=== PATIENT | female | born 1945 | race Caucasian/White ===

== ENCOUNTER 2019-06-15 13:53 | Inpatient (IN) | payer MEDICARE, OTHER ==
[~2019-06-15] VITALS: Ht 160 cm; Wt 83.6 kg
--- NOTE | 2019-06-15 14:26 | NUR ---
FIRST CONTACT WITH PT. PT C/O N/V FOR SIX MONTHS. PT STATES "I'M DEHYDRATED SO BAD". I HAVE DIZZINESS AND CP NOW." PT STATES LOSS OF OVER 100 LBS IN SIX MONTHS D/T NOT BEING ABLE TO EAT. SEEN AT [facility] SEVERAL TIMES, FRUSTRATED WITH LACK OF DIAGNOSIS. PT'S AOX4. RESPS EVEN AND UNLABORED. ALL MONITORS IN PLACE. CALL LIGHT WITHIN REACH.
[2019-06-15] MEDS ORDERED: ONDANSETRON 2MG/ML, 2ML ONE (14:55)
[2019-06-15] MEDS ORDERED: SODIUM CHLORIDE 0.9% 1,000ML IVBOLUS ONE ×2 (15:00→18:30)
[2019-06-15] MEDS ORDERED: ONDANSETRON 2MG/ML, 2ML IVPush ONE (15:00)
--- NOTE | 2019-06-15 15:02 | NUR ---
PT AMB TO BR WITH STEADY GAIT. PT PROVIDED URINE SAMPLE. THIS RN WALKED TO LAB AT THIS TIME.
--- NOTE | 2019-06-15 15:19 | NUR ---
PT MEDICATED PER [facility]AR. PT TOLERATED WELL. NS INFUSING AT THIS TIME.
[2019-06-15 15:30] LABS: MICROSCOPIC INDICATED
[2019-06-15 15:32] LABS: CULTURE INDICATED? YES
[2019-06-15 15:34] LABS: BASOPHILS # (AUTO) 0.01 x10^3/uL (0-0.1); BASOPHILS % (AUTO) 0 % (0-1); EOSINOPHILS % (AUTO) 0 % (1-7); LYMPHOCYTES # (AUTO) 0.78 x10^3/uL (1-3.4); LYMPHOCYTES % (AUTO) 7 % (22-44); MD NO; MEAN CORPUSCULAR HEMOGLOBIN 29.5 pg (27.0-34.8); MEAN CORPUSCULAR HGB CONC 33.2 g/dL (32.4-35.8); MEAN CORPUSCULAR VOLUME 89.1 fL (80-100); MEAN PLATELET VOLUME 7.9 fL (7.4-10.4); MONOCYTES % (AUTO) 6 % (2-9); NEUTROPHILS # (AUTO) 9.39 x10^3/uL (1.8-6.8); NEUTROPHILS % (AUTO) 87 % (42-75); PLATELET COUNT 269 x10^3/uL (130-400); RED BLOOD COUNT 4.37 x10^6/uL (3.82-5.3); RED CELL DISTRIBUTION WIDTH 14.2 % (9.6-15.2)
[2019-06-15 15:42] LABS: ALANINE AMINOTRANSFERASE 33 U/L (12-78); ALBUMIN 3.3 g/dL (3.4-5.0); ANION GAP 15 mmol/L (5-15); CALCIUM 8.6 mg/dL (8.5-10.1); CHLORIDE 99 mmol/L (98-107); CREATININE 1.07 mg/dL (0.55-1.02)
[2019-06-15 15:47] LABS: ALKALINE PHOSPHATASE 52 U/L (45-117); BILIRUBIN,TOTAL 0.7 mg/dL (0.2-1.0); TOTAL PROTEIN 6.8 g/dL (6.4-8.2); TROPONIN I < 0.015 ng/mL (0.000-0.045)
--- NOTE | 2019-06-15 15:52 | NUR ---
PT RESTING IN [facility]. PT'S AOX4. RESPS EVEN AND UNLABORED. BP/SPO2 MONITORS IN PLACE. CALL LIGHT WITHIN REACH. NS INFUSING STILL.
[2019-06-15] MEDS ORDERED: OMNIPAQUE 350 MG/ML, 100ML BOTTLE ONE (16:21)
--- NOTE | 2019-06-15 16:55 | NUR ---
MOUTH SWAB GIVEN AT THIS TIME PER PT'S REQUEST.
[2019-06-15] MEDS ORDERED: SUCR1TAB PO (17:14)
[2019-06-15] MEDS ORDERED: PANT40TA5 PO (17:15)
[2019-06-15] MEDS ORDERED: RIVA20TA PO (17:15)
[2019-06-15] MEDS ORDERED: HYDR-826 PO (17:16)
[2019-06-15] MEDS ORDERED: LISI-170 PO (17:16)
[2019-06-15] MEDS ORDERED: AMIO200T42 PO (17:16)
--- NOTE | 2019-06-15 17:34 | NUR ---
pt resting in [facility]. pt's aox4. resps even and unlabored. all monitors in place. call light within reach.
--- NOTE | 2019-06-15 18:10 | NUR ---
medication ordered from pharmacy at this time.
[2019-06-15] MEDS ORDERED: CEFTRIAXONE PMX 1GM/50ML 50 ML IV ONE (18:30)
[2019-06-15] MEDS ORDERED: METRONIDAZOLE PMX 500MG/100ML 100 ML IV ONE (18:30)
[2019-06-15] MEDS ORDERED: POTASSIUM CHLORIDE 20 MEQ in SODIUM CHLORIDE 0.9% 250 ML IV ONE ×2 (18:30→20:45)
[2019-06-15] MEDS ORDERED: CEFTRIAXONE PMX 1GM/50ML 50 ML ONE (18:30)
[2019-06-15] MEDS ORDERED: METRONIDAZOLE PMX 500MG/100ML 100 ML ONE (18:30)
--- NOTE | 2019-06-15 18:30 | NUR ---
abx and ns infusing at this time. per edmd, no blood culture needed. pt tolerated well.
--- NOTE | 2019-06-15 18:48 | NUR ---
report given to wilman peña.
--- NOTE | 2019-06-15 18:49 | NUR ---
Pt bedside report from Jacquie peña. This rn to assume care of pt.
--- NOTE | 2019-06-15 19:15 | NUR ---
Called pharmacy about flagyl and potassium y'd in together. Rx states not compatible. To hang abx prior to potassium, will tell floor nurse of situation.
--- NOTE | 2019-06-15 19:17 | NUR ---
Informed pt of potential need for 2nd iv. Pt refuses at this time. Educated and still refusing.
[2019-06-15] MEDS ORDERED: ACETAMINOPHEN 325 MG TABLET PO PRN (19:30)
[2019-06-15] MEDS ORDERED: LORazepam 2 MG/ML, 1ML IVPush PRN (19:30)
[2019-06-15] MEDS ORDERED: morphine SULFATE 10 MG/ML, 1ML IVPush PRN (19:30)
[2019-06-15] MEDS ORDERED: POTASSIUM CHLORIDE PMX 100 ML IV ONE (20:00)
[2019-06-16 03:16] VITALS: BP 147/76
[2019-06-16 05:30] LABS: ANION GAP 11 mmol/L (5-15); CALCIUM 7.4 mg/dL (8.5-10.1); CHLORIDE 108 mmol/L (98-107)
[2019-06-16 05:42] LABS: BASOPHILS # (AUTO) 0.01 x10^3/uL (0-0.1); BASOPHILS % (AUTO) 0 % (0-1); EOSINOPHILS # (AUTO) 0.02 x10^3/uL (0-0.4); EOSINOPHILS % (AUTO) 0 % (1-7); LYMPHOCYTES # (AUTO) 0.82 x10^3/uL (1-3.4); LYMPHOCYTES % (AUTO) 13 % (22-44); MD NO; MEAN CORPUSCULAR HGB CONC 33.3 g/dL (32.4-35.8); MEAN CORPUSCULAR VOLUME 90.1 fL (80-100); MEAN PLATELET VOLUME 7.6 fL (7.4-10.4); MONOCYTES # (AUTO) 0.48 x10^3/uL (0.2-0.8); MONOCYTES % (AUTO) 7 % (2-9); NEUTROPHILS # (AUTO) 5.18 x10^3/uL (1.8-6.8); NEUTROPHILS % (AUTO) 80 % (42-75); PLATELET COUNT 204 x10^3/uL (130-400); RED BLOOD COUNT 3.59 x10^6/uL (3.82-5.3); RED CELL DISTRIBUTION WIDTH 14.2 % (9.6-15.2)
[2019-06-16] MEDS ORDERED: MAGNESIUM SULFATE PMX 2GM/50ML 50 ML IV ONE (07:00)
[2019-06-16] MEDS ORDERED: POTASSIUM CHLORIDE 20 MEQ in SODIUM CHLORIDE 0.9% 250 ML IV ONE (07:00)
[2019-06-16] MEDS: SUCRALFATE 1 GM TABLET PO SCH (08:16)
[2019-06-16] MEDS: PANTOPRAZOLE 40MG TABLET PO SCH (08:17)
[2019-06-16] MEDS: AMIODARONE 200 MG TABLET PO SCH ×2 (08:17→20:23)
[2019-06-16] MEDS: LISINOPRIL 20 MG TABLET PO SCH (08:17)
[2019-06-16 11:10] VITALS: BP 151/77
[2019-06-16] MEDS ORDERED: FENTANYL PF 100 MCG/2ML ONE ×2 (12:10→13:34)
[2019-06-16] MEDS ORDERED: BUPIVACAINE/PF-EPI 0.5% 1:200K ONE (12:25)
[2019-06-16] MEDS ORDERED: ONDANSETRON 2MG/ML, 2ML ONE ×2 (12:51→13:38)
[2019-06-16] MEDS ORDERED: SUCCINYLCHOLINE 20 MG/ML, 10ML ONE (12:51)
[2019-06-16] MEDS ORDERED: ROCURONIUM 10MG/ML,5ML ONE (12:51)
[2019-06-16] MEDS ORDERED: NEOSTIGMINE 1 MG/ML, 10ML ONE (12:51)
[2019-06-16] MEDS ORDERED: GLYCOPYRROLATE 0.2MG/1ML, 5ML ONE (12:51)
[2019-06-16] MEDS ORDERED: LIDOCAINE-MPF 2% ,5ML ONE (12:51)
[2019-06-16] MEDS ORDERED: DEXAMETHASONE 4 MG/ML, 1ML ONE (12:51)
[2019-06-16] MEDS ORDERED: CEFAZOLIN 1,000 MG ONE (12:51)
[2019-06-16] MEDS ORDERED: PROPOFOL 10 MG/ML, 20ML ONE (12:51)
[2019-06-16] MEDS ORDERED: KETOROLAC 30 MG/1 ML ONE (13:05)
[2019-06-16] MEDS ORDERED: HYDROmorphone 2 MG/ML, 1ML IVPush PRN ×2 (13:30→16:30)
[2019-06-16] MEDS ORDERED: OXYcodone 5 MG/5 ML ORAL.SOL UDC PO PRN (13:30)
[2019-06-16] MEDS ORDERED: EPHEDRINE 50 MG/ML, 1ML IVPush PRN (13:30)
[2019-06-16] MEDS ORDERED: FENTANYL PF 100 MCG/2ML IV PRN (13:30)
[2019-06-16] MEDS ORDERED: PROMETHAZINE 25 MG/ML, 1ML IV PRN (13:30)
[2019-06-16] MEDS ORDERED: ONDANSETRON 2MG/ML, 2ML IV PRN (13:30)
[2019-06-16] MEDS ORDERED: MEPERIDINE/PF 25MG/ML,1ML IVPush PRN (13:30)
[2019-06-16] MEDS ORDERED: hydrALAzine 20 MG/ML, 1ML IV PRN (13:30)
[2019-06-16] MEDS ORDERED: LABETALOL 5MG/ML, 20ML IV PRN (13:30)
[2019-06-16] MEDS ORDERED: ACETAMINOPHEN 325 MG TABLET PO PRN (13:30)
[2019-06-16] MEDS ORDERED: METOPROLOL 1 MG/ML, 5ML ONE (13:36)
[2019-06-16] MEDS ORDERED: SUGAMMADEX 200 MG/2 ML IVPush ONE (13:38)
[2019-06-16] MEDS ORDERED: PROMETHAZINE 25 MG/ML, 1ML ONE (14:26)
[2019-06-16 14:52] VITALS: BP 139/68
[2019-06-16] MEDS ORDERED: HYDROcodone/APAP 5/325 TABLET PO PRN (16:30)
[2019-06-16] MEDS ORDERED: OXYcodone/APAP 5/325MG TABLET PO PRN (16:30)
[2019-06-16] MEDS ORDERED: morphine SULFATE 10 MG/ML, 1ML IV PRN (16:30)
[2019-06-16] MEDS: CEFOTETAN PMX 1GM/50ML 50 ML IVPB SCH (16:56)
[2019-06-16] MEDS: RIVAROXABAN 20 MG TABLET PO SCH (16:56)
[2019-06-16] MEDS: POTASSIUM CHLORIDE 20 MEQ in LACTATED RINGERS 1,000 ML IV SCH (17:46)
[2019-06-16 20:05] VITALS: BP 131/66
[2019-06-17 02:00] VITALS: BP 128/71
[2019-06-17] MEDS: POTASSIUM CHLORIDE 20 MEQ in LACTATED RINGERS 1,000 ML IV SCH (03:14)
[2019-06-17] MEDS: CEFOTETAN PMX 1GM/50ML 50 ML IVPB SCH (04:25)
[2019-06-17 05:30] LABS: BASOPHILS # (AUTO) 0.01 x10^3/uL (0-0.1); BASOPHILS % (AUTO) 0 % (0-1); EOSINOPHILS % (AUTO) 0 % (1-7); LYMPHOCYTES % (AUTO) 3 % (22-44); MD NO; MEAN CORPUSCULAR HEMOGLOBIN 29.8 pg (27.0-34.8); MEAN CORPUSCULAR HGB CONC 33.7 g/dL (32.4-35.8); MEAN CORPUSCULAR VOLUME 88.5 fL (80-100); MEAN PLATELET VOLUME 7.5 fL (7.4-10.4); MONOCYTES # (AUTO) 0.56 x10^3/uL (0.2-0.8); MONOCYTES % (AUTO) 6 % (2-9); NEUTROPHILS # (AUTO) 8.81 x10^3/uL (1.8-6.8); NEUTROPHILS % (AUTO) 91 % (42-75); PLATELET COUNT 198 x10^3/uL (130-400); RED BLOOD COUNT 3.32 x10^6/uL (3.82-5.3); RED CELL DISTRIBUTION WIDTH 14.5 % (9.6-15.2)
[2019-06-17 05:39] LABS: ALBUMIN 2.4 g/dL (3.4-5.0); ANION GAP 9 mmol/L (5-15); CALCIUM 7.5 mg/dL (8.5-10.1); CHLORIDE 110 mmol/L (98-107)
[2019-06-17 05:42] LABS: ALANINE AMINOTRANSFERASE 58 U/L (12-78); ALKALINE PHOSPHATASE 40 U/L (45-117); BILIRUBIN,TOTAL 0.4 mg/dL (0.2-1.0); CREATININE 1.36 mg/dL (0.55-1.02); TOTAL PROTEIN 5.1 g/dL (6.4-8.2)
[2019-06-17 07:00] VITALS: BP 148/73
[2019-06-17] MEDS: LISINOPRIL 20 MG TABLET PO SCH (08:27)
[2019-06-17] MEDS: AMIODARONE 200 MG TABLET PO SCH (08:27)
[2019-06-17] MEDS: SUCRALFATE 1 GM TABLET PO SCH (08:27)
[2019-06-17] MEDS: PANTOPRAZOLE 40MG TABLET PO SCH (08:28)
[2019-06-17 16:31] VITALS: BP 137/78
[2019-06-17] MEDS: RIVAROXABAN 20 MG TABLET PO SCH (16:37)
[2019-06-17] MEDS: POTASSIUM CHLORIDE 40 MEQ in LACTATED RINGERS 1,000 ML IV SCH (17:24)
[2019-06-17 20:00] VITALS: BP 167/78
[2019-06-17 20:08] VITALS: BP 153/82
[2019-06-18 01:36] VITALS: BP 153/80
[2019-06-18] MEDS: POTASSIUM CHLORIDE 40 MEQ in LACTATED RINGERS 1,000 ML IV SCH ×2 (02:32→15:13)
[2019-06-18 05:18] LABS: BASOPHILS # (AUTO) 0.01 x10^3/uL (0-0.1); BASOPHILS % (AUTO) 0 % (0-1); EOSINOPHILS % (AUTO) 1 % (1-7); LYMPHOCYTES # (AUTO) 0.86 x10^3/uL (1-3.4); LYMPHOCYTES % (AUTO) 11 % (22-44); MD NO; MEAN CORPUSCULAR HEMOGLOBIN 29.5 pg (27.0-34.8); MEAN CORPUSCULAR HGB CONC 33.1 g/dL (32.4-35.8); MEAN CORPUSCULAR VOLUME 89.1 fL (80-100); MEAN PLATELET VOLUME 7.8 fL (7.4-10.4); MONOCYTES # (AUTO) 0.51 x10^3/uL (0.2-0.8); MONOCYTES % (AUTO) 6 % (2-9); NEUTROPHILS # (AUTO) 6.74 x10^3/uL (1.8-6.8); NEUTROPHILS % (AUTO) 82 % (42-75); PLATELET COUNT 177 x10^3/uL (130-400); RED BLOOD COUNT 3.12 x10^6/uL (3.82-5.3); RED CELL DISTRIBUTION WIDTH 15.1 % (9.6-15.2)
[2019-06-18 05:27] LABS: ALANINE AMINOTRANSFERASE 50 U/L (12-78); ALBUMIN 2.2 g/dL (3.4-5.0); ANION GAP 6 mmol/L (5-15); CALCIUM 7.5 mg/dL (8.5-10.1); CHLORIDE 113 mmol/L (98-107); CREATININE 0.76 mg/dL (0.55-1.02)
[2019-06-18 05:29] LABS: ALKALINE PHOSPHATASE 41 U/L (45-117); BILIRUBIN,TOTAL 0.4 mg/dL (0.2-1.0); TOTAL PROTEIN 4.8 g/dL (6.4-8.2)
[2019-06-18 08:05] VITALS: BP 162/81
[2019-06-18] MEDS: SUCRALFATE 1 GM TABLET PO SCH (08:07)
[2019-06-18] MEDS: LISINOPRIL 20 MG TABLET PO SCH (08:09)
[2019-06-18] MEDS: AMIODARONE 200 MG TABLET PO SCH (08:10)
[2019-06-18] MEDS: PANTOPRAZOLE 40MG TABLET PO SCH (08:10)
[2019-06-18] MEDS: ONDANSETRON 2MG/ML, 2ML IV PRN ×2 (08:10→17:04)
[2019-06-18 12:17] VITALS: BP 166/102
[2019-06-18] MEDS: RIVAROXABAN 20 MG TABLET PO SCH (17:04)
[2019-06-18 21:00] VITALS: BP 153/86
[2019-06-19] MEDS: POTASSIUM CHLORIDE 40 MEQ in LACTATED RINGERS 1,000 ML IV SCH (00:14)
[2019-06-19 01:29] VITALS: BP 160/81
[2019-06-19] MEDS: SUCRALFATE 1 GM TABLET PO SCH (06:32)
[2019-06-19] MEDS: PANTOPRAZOLE 40MG TABLET PO SCH (06:33)
[2019-06-19 06:41] LABS: ANION GAP 7 mmol/L (5-15); CALCIUM 8.1 mg/dL (8.5-10.1); CHLORIDE 106 mmol/L (98-107); CREATININE 0.63 mg/dL (0.55-1.02)
[2019-06-19 06:44] LABS: BASOPHILS # (AUTO) 0.02 x10^3/uL (0-0.1); BASOPHILS % (AUTO) 0 % (0-1); EOSINOPHILS # (AUTO) 0.02 x10^3/uL (0-0.4); EOSINOPHILS % (AUTO) 0 % (1-7); LYMPHOCYTES # (AUTO) 1.37 x10^3/uL (1-3.4); LYMPHOCYTES % (AUTO) 17 % (22-44); MD NO; MEAN CORPUSCULAR HEMOGLOBIN 29.4 pg (27.0-34.8); MEAN CORPUSCULAR HGB CONC 32.6 g/dL (32.4-35.8); MEAN CORPUSCULAR VOLUME 90.3 fL (80-100); MEAN PLATELET VOLUME 7.7 fL (7.4-10.4); MONOCYTES # (AUTO) 0.38 x10^3/uL (0.2-0.8); MONOCYTES % (AUTO) 5 % (2-9); NEUTROPHILS # (AUTO) 6.33 x10^3/uL (1.8-6.8); NEUTROPHILS % (AUTO) 78 % (42-75); PLATELET COUNT 218 x10^3/uL (130-400); RED BLOOD COUNT 3.72 x10^6/uL (3.82-5.3)
[2019-06-19 07:56] VITALS: BP 173/83
[2019-06-19] MEDS: AMIODARONE 200 MG TABLET PO SCH (08:22)
[2019-06-19] MEDS: LISINOPRIL 20 MG TABLET PO SCH (08:22)
[2019-06-19 08:24] VITALS: BP 151/79
[2019-06-19] MEDS ORDERED: ONDANSETRON 4 MG TABLET PO PRN (11:00)
[2019-06-19] MEDS ORDERED: ONDA-89 PO (14:23)
[2019-06-19 15:52] VITALS: BP 165/96
[2019-06-19 16:15] VITALS: BP 165/96
== END 2019-06-19 17:24 | disposition home or self-care (01) | DRG 417 ==
LOC: ED 18:25 → EDIP 18:31 → ED 18:58 → 3N 20:08
PROVIDERS: ADMIT Family Medicine; ATTEND Family Medicine
PROC: 0FT44ZZ Resection of Gallbladder, Percutaneous Endoscopic Approach (ICD-10-PCS; principal; 2019-06-16 13:00)
DX: K80.00 Calculus of gallbladder with acute cholecystitis without obstruction (principal); E43 Unspecified severe protein-calorie malnutrition; E46 Unspecified protein-calorie malnutrition; D68.69 Other thrombophilia; K66.0 Peritoneal adhesions (postprocedural) (postinfection); I48.0 Paroxysmal atrial fibrillation; E87.6 Hypokalemia; K82.8 Other specified diseases of gallbladder; Z88.5 Allergy status to narcotic agent; E78.5 Hyperlipidemia, unspecified; E86.0 Dehydration; I10 Essential (primary) hypertension; Z79.01 Long term (current) use of anticoagulants; K52.9 Noninfective gastroenteritis and colitis, unspecified; Z68.32 Body mass index [BMI] 32.0-32.9, adult
CPT/HCPCS: 36415; 70450; 71045; 74177; 80048; 80053; 81001; 83690; 83735; 83880; 84100; 84484; 85025; 87086; 88304; 93005; 96361; 96365; 96375; 99285; C1729; G0378; J0690; J0696; J1100; J1885; J2405; J2550; J2704; J2710; J3010; J3480; Q9967; C1760; J0330; J3475; J3490; J7030; J7050; J7120